=== PATIENT | male | born 1985 | race Caucasian/White ===

== ENCOUNTER 2020-02-06 15:39 | Emergency (ER) | payer BC, OTHER ==
[2020-02-06] MEDS ORDERED: Bacitracin 1 PK ONE (16:55)
[2020-02-06] MEDS ORDERED: Boostrix 0.5 ML (Tdap) VIAL ONE (16:56)
== END 2020-02-06 17:16 | disposition home or self-care (01) ==
LOC: MADERS 15:39
DX: S41.112A Laceration without foreign body of left upper arm, initial encounter (principal); I10 Essential (primary) hypertension; Z79.899 Other long term (current) drug therapy; W26.0XXA Contact with knife, initial encounter
CPT/HCPCS: 12002; 90471; 90715